=== PATIENT | female | born 1970 | race Caucasian/White ===

== ENCOUNTER 2018-01-04 15:50 | Observation (INO) ==
[2018-01-04] MEDS ORDERED: 0.9 % Sodium Chloride 500 ML IVC ONE (16:27)
--- NOTE | 2018-01-04 16:27 | Emergency Department Note ---
Disposition Clinical Impression: Venous stasis dermatitis of both lower extremities, Morbid obesity, Lymphedema of both lower extremities Cellulitis Qualifiers: Site of cellulitis: unspecified site Qualified Code(s): L03.90 - Cellulitis, unspecified Disposition: Transfer Intermediate Care Fac Condition: Fair Time of Disposition: 06:40 ([facility]) Skin/Abscess/FB HPI Chief complaint: ED General Medical Stated complaint: open areas to lower legs Time Seen by Provider: 01/04/18 16:04 Source: patient Mode of arrival: EMS Limitations: no limitations Nursing Notes Reviewed: Yes Vital Signs Reviewed: Yes Pt Subjective Complaint: rash Onset (ago): day(s) (2) Tetanus Up to Date: yes Location: LLE, RLE Severity: severe Quality: burning, aching Consistency: constant, Worsening Improves with: none Worsens with: palpation, movement Context: other (History of lymphedema presents to the ED secondary to worsening redness along with oozing from blister area.) Associated symptoms: Denies: fever, chills, rigors, itching, nausea, vomiting, malaise, arthralgias, myalgias, cough, shortness of breath Treatments prior to arrival: bandages Home Medications Medication Instructions Recorded Confirmed Omeprazole 20 mg PO DAILY 01/29/17 01/04/18 Furosemide [Lasix] 40 mg PO BID 04/18/17 01/04/18 Warfarin [Coumadin] 5 mg PO 1800 01/04/18 01/04/18 Previous Rx's Medication Instructions Recorded Metoprolol [Lopressor] 50 mg PO BID #30 tablet 09/25/16 Allergies Allergy/AdvReac Type Severity Reaction Status Date / Time cephalexin [From Keflex] Allergy Hives Verified 01/04/18 15:52 codeine Allergy Anaphylaxis Verified 01/04/18 15:52 adhesive tape AdvReac Hives Verified 01/04/18 15:52 aspirin AdvReac Hives Verified 01/04/18 15:52 clindamycin AdvReac Hives Verified 01/04/18 15:52 Hydromorphone [From Dilaudid] AdvReac Hives Verified 01/04/18 15:52 iodine AdvReac Hives Verified 01/04/18 15:52 latex AdvReac Hives Verified 01/04/18 15:52 nalbuphine [From Nubain] AdvReac Hives Verified 01/04/18 15:52 All systems ED: reviewed and negative except as stated. Review of Systems: As Per HPI Past Medical History - Past Medical History Medical history: Reports: diabetes, hypertension, renal disease, other Surgical history: Reports: breast surgery, cholecystectomy, orthopedic, other, other Psychiatric history: Reports: anxiety, depression [employer] history: Reports: no [employer] history - Social History Smoking Status: Current every day smoker Smokeless Tobacco Status: No Alcohol use: Reports: none Drug use: Reports: none Physical Exam - General Limitations: no limitations General appearance: alert - Head Head exam: atraumatic, normocephalic, normal inspection - Eye Eye exam: Present: normal appearance, PERRL, EOMI - Chest Chest inspection: Present: normal inspection, symmetric chest wall rise - Respiratory Respiratory exam: Present: normal lung sounds bilaterally - Cardiovascular Cardiovascular exam: Present: regular rate, normal rhythm, normal heart sounds - Expanded Lower Extremity Exam Hip/Pelvis exam: Present: normal inspection, full ROM Upper leg exam: Present: normal inspection, full ROM Knee exam: Present: normal inspection, full ROM Lower leg exam: Present: full ROM, tenderness (Bilateral lower extremity), swelling (Bilateral lower extremity), erythema (Bilateral lower extremity) Ankle exam: Present: normal inspection, full ROM Foot/toe exam: Present: normal inspection, full ROM Neurovascular/Tendon exam: Present: normal capillary refill - Neurological Exam Neurological exam: Present: alert, oriented X3 - Psychiatric Psychiatric exam: Present: normal affect, normal mood - Skin Skin exam: Present: warm, dry, intact, normal color - Expanded Skin Exam Type of lesion: Present: other (Cellulitis) Distribution: LLE, RLE Description: Present: size (Differential erythema in the right lower extremity and three quarters erythema to the left lower extremity.), indurated, other ( Multiple areas of skin erosion with no active purulent discharge. There are areas with serous fluid. Negative Nikolsky sign.). Absent: vesicular, blisters Course Course Narrative: Stable ED course. The patient has cellulitis and bilateral extremity. The patient was started on Levaquin and given by mouth doxycycline. The patient was transferred to the [facility] for further treatment and evaluation of her circumferential cellulitis. When she arrived in the [facility] floor she was informed that her doctor is going to be Dr. Hercules, she subsequently did not want to stay in the [facility] floor secondary to previous experience with Dr. Hercules. She was never seen in this department and admitted by Dr. Hercules but she has been evaluated by him in a assisted facility. I did try to speak to her regarding her stay in the hospital and that she will be given antibiotics and most likely be discharged in the next 24 hours. The patient did not want to stay and subsequently was transferred to [facility]. Vital Signs Temperature 99.9 F H 01/04/18 15:56 Pulse Rate 89 01/04/18 15:56 Respiratory Rate 20 01/04/18 15:56 Blood Pressure 133/72 01/04/18 15:56 O2 Sat by Pulse Oximetry 95 01/04/18 15:56 Temperature 98.6 F 01/05/18 04:07 Pulse Rate 84 01/05/18 04:07 Respiratory Rate 16 01/05/18 04:07 Blood Pressure 144/67 01/05/18 04:07 O2 Sat by Pulse Oximetry 90 01/05/18 04:07 Oxygen Delivery Oxygen Delivery Nasal Cannula Skin/Abscess/Foreign Body - Lab Data Result diagrams: 01/04/18 16:57 01/04/18 16:57 Lab Results 01/04/18 01/04/18 Range/Units 16:57 16:57 WBC 10.2 (4.3-11.1) K/mcL RBC 4.05 (3.82-4.97) M/mcL Hgb 8.6 L (11.5-15.4) g/dL Hct 30.2 L (35.3-44.9) % MCV 74.6 L (83.0-100.0) fL MCH 21.2 L (28.0-33.3) pg MCHC 28.5 L (31.6-35.5) g/dL RDW 23.3 H (11.5-14.5) % Plt Count 272 (140-400) K/mcL MPV 9.3 L (9.4-12.4) fL Immature Gran % 0.6 (0-4) % Seg Neutrophils % 71.8 % Lymphocytes % 15.4 % Monocytes % 6.3 % Eosinophils % 5.5 % Basophils % 0.4 % Neutrophils # 7.3 (1.6-8.9) K/mcL Lymphocytes # 1.6 (0.6-4.6) K/mcL Monocytes # 0.6 (0.0-1.3) K/mcL Eosinophils # 0.6 (0.0-0.6) K/mcL Basophils # 0.0 (0.0-0.2) K/mcL Polychromasia 1+ A (Not Present) Hypochromasia Present A (Not Present) Anisocytosis 1+ A (Not Present) Sodium 139 (136-145) mEq/L Potassium 3.5 (3.5-5.1) mEq/L Chloride 103 (98-107) mEq/L Carbon Dioxide 29 (23-29) mEq/L BUN 7 (6-20) mg/dL Creatinine 1.13 (0.60-1.20) mg/dL Est GFR ( Amer) > 60 (> 60) Est GFR (Non-Af Amer) 51 L (> 60) BUN/Creatinine Ratio 6 (6-26) Glucose 118 H (70-105) mg/dL Calculated Osmolality 287 (280-300) Calcium 8.5 L (8.6-10.3) mg/dL
[2018-01-04] MEDS ORDERED: Doxycycline 100 MG CAPSULE PO ONE (16:30)
[2018-01-04 17:10] LABS: Basophils % 0.4 %; Eosinophils # 0.6 K/mcL (0.0-0.6); Eosinophils % 5.5 %; Hematocrit 30.2 % (35.3-44.9); Hemoglobin 8.6 g/dL (11.5-15.4); Immature Granulocytes % 0.6 % (0-4); Lymphocytes # 1.6 K/mcL (0.6-4.6); Lymphocytes % 15.4 %; Mean Corpuscular HGB Conc 28.5 g/dL (31.6-35.5); Mean Corpuscular Hemoglobin 21.2 pg (28.0-33.3); Mean Corpuscular Volume 74.6 fL (83.0-100.0); Mean Platelet Volume 9.3 fL (9.4-12.4); Monocytes # 0.6 K/mcL (0.0-1.3); Monocytes % 6.3 %; Neutrophils # 7.3 K/mcL (1.6-8.9); Platelet Count 272 K/mcL (140-400); Red Blood Count 4.05 M/mcL (3.82-4.97); Red Cell Distribution Width 23.3 % (11.5-14.5); Segmented Neutrophils % 71.8 %
[2018-01-04 17:30] LABS: BUN/Creatinine Ratio 6 (6-26); Blood Urea Nitrogen 7 mg/dL (6-20); Calcium 8.5 mg/dL (8.6-10.3); Carbon Dioxide 29 mEq/L (23-29); Chloride 103 mEq/L (98-107); Glucose 118 mg/dL (70-105); Osmolality,Calculated 287 (280-300); Potassium 3.5 mEq/L (3.5-5.1); Sodium 139 mEq/L (136-145); eGFR For African Americans > 60 (> 60); eGFR For Non-African Americans 51 (> 60)
[2018-01-04 17:44] LABS: Anisocytosis 1+ (Not Present); Hypochromasia Present (Not Present); Polychromasia 1+ (Not Present)
[2018-01-04] MEDS ORDERED: Levofloxacin 750 MG/150 ML 750 MG/150 ML BAG IVPB ONE (19:45)
[2018-01-04] MEDS ORDERED: Naloxone 0.4 MG/ML INJ IVP PRN (22:56)
[2018-01-04] MEDS ORDERED: Furosemide 40 MG TABLET PO SCH (22:56)
[2018-01-04] MEDS ORDERED: Ondansetron 4 MG/2 ML VIAL IVP PRN (22:56)
[2018-01-04] MEDS ORDERED: OXYCODONE Oral CONC 10 MG/0.5 ML ORAL.SYG SL PRN ×2 (22:56)
[2018-01-04] MEDS ORDERED: Acetaminophen 325 MG TABLET PO PRN (22:56)
[2018-01-05 04:10] VITALS: BP 144/67
[2018-01-05] MEDS ORDERED: *HR* Warfarin 5 MG TABLET PO SCH (18:00)
== END 2018-01-05 05:00 | disposition short-term general hospital (02) ==
LOC: EMEROOPIK 15:50 → INPPIK 15:50
PROVIDERS: ADMIT Internal Medicine; ATTEND Internal Medicine